=== PATIENT | female | born 1935 ===

== ENCOUNTER 2016-07-01 18:40 | Inpatient (IN) | payer MEDICARE ==
[~2016-07-01] VITALS: Ht 152.4 cm; Wt 67.2 kg
--- NOTE | 2016-07-01 19:00 | NUR ---
PATIENT IN BED, AWAKE. DENIES CURRENT NEEDS.
[2016-07-01] MEDS ORDERED: ELAVIL25 MG PO (20:13)
[2016-07-01] MEDS ORDERED: CYMBALTA60 MG PO (20:14)
[2016-07-01] MEDS ORDERED: LIPITOR20 MG PO (20:14)
[2016-07-01] MEDS ORDERED: CYCLOBENZAPRINE10 MG PO (20:14)
[2016-07-01] MEDS ORDERED: NEURONTIN 300300 MG PO (20:16)
[2016-07-01] MEDS ORDERED: METOPROLOL TART25 MG PO (20:19)
[2016-07-01] MEDS ORDERED: HYDROCODON-ACE1 EAC7 PO (20:19)
[2016-07-01] MEDS ORDERED: MECLIZINE HCL25 MG PO (20:20)
[2016-07-01] MEDS ORDERED: CATAPRES0.1 MG PO (20:21)
[2016-07-01] MEDS ORDERED: DIOVAN160 MG PO (20:22)
[2016-07-01] MEDS ORDERED: PHENERGAN25 M1 PO (20:22)
[2016-07-01 20:23] VITALS: BP 112/53; BMI 28.9
[2016-07-01 20:43] VITALS: BP 112/53
--- NOTE | 2016-07-01 21:25 | NUR ---
C/O PAIN LEVEL OF 6/10 IN LOW BACK, RIGHT ARM AND SHOULDER. GAVE PATIENT NORCO 5325 X1 TAB PO, WELL SCHEDULED HS MEDS. TOLD HER I WILL RETURN TO ASSESS HER AND RECORD HER HEALTH HISTORY.
--- NOTE | 2016-07-01 23:35 | NUR ---
ASSESSMENT AND HISTORY COMPLETE. ADMISSION DOCUMENTS INITIALED. PATIENT UNABLE TO SIGN FULL SIGNATURE DUE TO CVA EFFECTS TO HER RIGHT HAND. ASSISTED PATIENT UP TO BR TO URINATE. PATIENT ALSO HAD A SMALL FORMED BM WHILE ON COMMODE. THEN ASSISTED HER BACK TO BED. BED ALARM IS ARMED. DENIES FURTHER NEEDS.
--- NOTE | 2016-07-02 02:30 | NUR ---
RESTING IN BED ON LEFT SIDE, EYES CLOSED.
--- NOTE | 2016-07-02 04:45 | NUR ---
RESTING QUIETLY SINCE ASSIST UP TO BR AROUND 0300 HRS.
--- NOTE | 2016-07-02 05:50 | NUR ---
RESTING QUIETLY IN BED, EYES CLOSED.
[2016-07-02 07:30] VITALS: BP 150/56
--- NOTE | 2016-07-02 07:30 | NUR ---
UP IN BATHROOM.ASSISTED WITH MINIMAL HELP TO BED VIA WC.C/O LOW BACK AND SHOULDER PAIN,RATED PAIN AN 8.ASSESSMENT COMPLETED.WILL CONTINUE WITH PLAN OF CARE.
[2016-07-02 08:30] LABS: BASOPHILS 0.3 % (0-2); EOSINOPHILS 3.1 % (0-7); HEMATOCRIT 38.5 % (36.0-48.0); HEMOGLOBIN 12.9 g/dL (12-16); IMMATURE GRANULOCYTES 0.3 % (0-5); LYMPHOCYTES 16.3 % (15-50); MCH 28.4 pg (26.0-34.0); MCHC 33.5 g/dL (31.0-37.0); MCV 84.8 fL (80.0-100.0); MEAN PLATELET VOLUME 8.4 fL (7.4-10.4); MONOCYTES 6.7 % (2-11); NEUTROPHILS 73.3 % (40-80); PLATELET COUNT 217 10x3/uL (130-400); RBC 4.54 10x6/uL (4.00-5.40); RDW 13.4 % (11.5-14.5); WBC 6.5 10x3/uL (4.8-10.8)
[2016-07-02 08:42] LABS: ANION GAP 10.8 mmol/L (8-16); CALCIUM 9.6 mg/dL (8.5-10.1); CARBON DIOXIDE 31.4 mmol/L (21.0-32.0); CREATININE - SERUM 0.9 mg/dL (0.6-1.3); POTASSIUM - SERUM 4.2 mmol/L (3.5-5.1)
[2016-07-02 13:18] VITALS: Ht 152.4 cm; Wt 67.2 kg
--- NOTE | 2016-07-02 19:30 | NUR ---
IN BED, TALKING ON PHONE. NO COMPLAINTS AT THIS TIME.
[2016-07-02 21:00] VITALS: BP 142/83
--- NOTE | 2016-07-02 21:00 | NUR ---
ASSESSMENT AND HS MEDS COMPLETE. GAVE PATIENT NORCO X1 TAB PO FOR PAIN LEVEL OF 7/10 IN LOW BACK, RIGHT ARM AND LEG. DARK BRUISING TO RIGHT FOREARM VERY PLAIN TONIGHT FROM FALL AT HOME YESTERDAY 07/01 PRIOR TO ADMISSION TO REHAB. WAS ONLY SLIGHTLY DISCOLORED LAST NIGHT.
--- NOTE | 2016-07-02 21:50 | NUR ---
ASSISTED PATIENT UP TO BR TO URINATE, AND THEN BACK TO BED. NO COMPLAINTS AT THIS TIME.
--- NOTE | 2016-07-03 00:10 | NUR ---
IN BED, EYES CLOSED. RESTING ON LEFT SIDE.
--- NOTE | 2016-07-03 02:30 | NUR ---
RESTING IN BED, EYES CLOSED. NO APPARENT DISCOMFORT.
--- NOTE | 2016-07-03 04:30 | NUR ---
IN BED, EYES CLOSED RESPIRATIONS ARE QUIET AND UNLABORED.
--- NOTE | 2016-07-03 05:45 | NUR ---
IN BED, EYES CLOSED. RESTONG QUIETLY.
[2016-07-03 07:20] VITALS: BP 130/91
--- NOTE | 2016-07-03 19:10 | NUR ---
IN BED, AWAKE. LISTENING TO BOOK ON TAPE. DENIES NEEDS.
[2016-07-03 21:20] VITALS: BP 141/82
--- NOTE | 2016-07-03 22:25 | NUR ---
VS WERE TAKEN AT 2119 AND ASSESSMENT WAS INITIATED. ASSESSMENT NOW COMPLETE. GAVE PATIENT HS MEDS WELL NORCO 5/325 X1 TAB PO FOR PAIN LEVEL OF 7/10 IN LOW BACK. SAYS RIGHT ARM AND SHOULDER PAIN OF WHICH SHE HAS COMPLAINED THE PAST 2 NIGHTS IS MUCH IMPROVED.
--- NOTE | 2016-07-03 23:45 | NUR ---
RESTING IN BED ON LEFT SIDE. EYES CLOSED. NO APPARENT DISCOMFORT.
--- NOTE | 2016-07-04 02:10 | NUR ---
RESTING IN BED ON LEFT SIDE. APPEARS COMFORTABLE.
--- NOTE | 2016-07-04 03:15 | NUR ---
ASSISTED PATIENT UP TO COMMODE AND SUBSEQUENTLY BACK TO BED. ON RETURN FROM C/O PAIN LEVEL OF 6/10 IN LOW BACK. GAVE HER NORCO 5/325 X1 TAB PO.
--- NOTE | 2016-07-04 04:10 | NUR ---
RESTING QUIETLY, RESPIRATIONS UNLABORED.
--- NOTE | 2016-07-04 05:50 | NUR ---
IN BED, EYES CLOSED. NO EVIDENT DISTRESS.
--- NOTE | 2016-07-04 07:31 | NUR ---
RESTING QUIETLY IN BED CALL LIGHT IN REACH
--- NOTE | 2016-07-04 08:08 | NUR ---
MORNING MEDICATION GIVEN, PT TOLERATED WELL,PT STATES PAIN AT A 7 IN LOWER BACK, PAIN MEDICATION GIVEN, WILL CONTINUE TO MONITOR, CALL LIGHT WITHN REACH.
[2016-07-04 09:08] VITALS: BP 125/69
--- NOTE | 2016-07-04 10:16 | NUR ---
ASSISTED PT TO BATHROOM AND BACK TO BED VIA WHEELCHAIR, MINIMAL ASSISTANCE GIVEN, WILL CONTINUE TO MONITOR, CALL LIGHT WITHIN REACH.
--- NOTE | 2016-07-04 13:14 | NUR ---
PT RESTING QUIETLY, RESPIRATIONS EVEN, BED IN LOW POSITION, SIDE RAILS UP X'S 2, CALL LIGHT WITHIN REACH.
--- NOTE | 2016-07-04 15:26 | NUR ---
PT VISITING WITH FAMILY, PT STATES NO NEEDS AT THIS TIME, WILL CONTINUE TO MONITOR, CALL LIGHT WITHIN REACH.
--- NOTE | 2016-07-04 17:23 | NUR ---
PT SITTING ON BEDSIDE WATCHING TV, PT STATES NO NEW NEEDS AT THIS TIME, WILL CONTINUE TO MONITOR, CALL LIGHT WITHIN REACH.
--- NOTE | 2016-07-04 19:45 | NUR ---
ASSISTED PT TO BATHROOM, MIN ASSIST, PT IS ABLE TO PROPEL W/C FOR SHORT DISTANCE. PT C/O DIZZINESS AND PRN MEDICATION, MEDICATED PER ORDER.
[2016-07-04 20:08] VITALS: BP 123/65
--- NOTE | 2016-07-05 03:00 | NUR ---
PT RESTING QUIETLY, EYES CLOSED, NO S/S OF ACUTE DISTRESS.
--- NOTE | 2016-07-05 06:15 | NUR ---
PT REQUESTED PHENERGAN AT [address] WILL WORK AND SHE WON'T BE NAUSEAUS AT BREAKFAST, PT STATES SHE SLEPT WELL.
[2016-07-05 08:00] VITALS: BP 149/76
--- NOTE | 2016-07-05 08:00 | NUR ---
PATIENT ALERT/ORIENT X4. SITTING UP IN BED TO EAT BREAKFAST. CALL LIGHT WITHIN REACH. VOICES NO NEEDS AT THIS TIME
--- NOTE | 2016-07-05 10:00 | NUR ---
PATIENT IN REHAB ROOM WORKING WITH OCCUPATIONAL THERAPIST. STATES RELIEF FROM PRN PAIN MEDICATION
--- NOTE | 2016-07-05 10:58 | NUR ---
Nutrition Follow Up: Pt reported that her appetite is poor. She said that she is nauseated. Pt stated that she has trouble chewing due to loss of teeth. Pt requested a bland mechanical soft diet. She agreed to Ensure and Mighty Shakes. Pt is eating 33% meal avg on a regular diet. +BM 07/04/16. Wt stable. Labs reviewed. Meds noted. Pt continues with poor po intake. Will change diet to bland mech soft to aid in po intake. Will send Ensure and Mighty Shakes daily. Rec consider an appetite stimulant. RD will continue to monitor pt progress.
--- NOTE | 2016-07-05 14:04 | NUR ---
PATIENT IN REHAB ROOM. WORKING WITH PHYSICAL THERAPIST. DENIES ANY PAIN/DISC AT THIS TIME
--- NOTE | 2016-07-05 18:44 | NUR ---
RESTING QUIETLY IN BED CALL LIGHT IN REACH
--- NOTE | 2016-07-05 19:30 | NUR ---
PT RESTING SIDELYING, SMILES EASILY, CONVERSIVE. ALERT & ORIENTED.
[2016-07-05 21:39] VITALS: BP 132/75
--- NOTE | 2016-07-06 00:10 | NUR ---
ASSISTED WITH GETTING OUT OF BED, PT STATES HER HEADACHE IS FEELING BETTER. VOIDS PER TOILET.
--- NOTE | 2016-07-06 01:54 | NUR ---
PT TALENT ACQUISITION PROGRAM MANAGER LIGHT, PT UP TO BR VIA WC WITH ASSISTANCE, PT TO COMMODE, VOIDED BY SELF WITH NO DIFFICULTY, PT BACK TO BED, C/O LOW BACK PAIN, ADM NORCO PO PER MD ORDERS, SEE EMAR, PT DENIES FURTHER NEEDS
--- NOTE | 2016-07-06 02:30 | NUR ---
pt resting quietly on left side, pt has used call light for assistance as needed.
--- NOTE | 2016-07-06 02:30 | NUR ---
pt awake, states she needs assistance with repositioning left leg, pt is in dismay that it is only 2:30 in the morning.
--- NOTE | 2016-07-06 06:07 | NUR ---
pt requires max assist with bed mobility and encouragement for her to assist. pt frequently moans. left message for physician regarding pururitic rash on back
[2016-07-06 06:13] LABS: BASOPHILS 0.5 % (0-2); EOSINOPHILS 3.9 % (0-7); HEMATOCRIT 35.4 % (36.0-48.0); HEMOGLOBIN 11.7 g/dL (12-16); IMMATURE GRANULOCYTES 0.2 % (0-5); LYMPHOCYTES 21.3 % (15-50); MCH 28.2 pg (26.0-34.0); MCHC 33.1 g/dL (31.0-37.0); MCV 85.3 fL (80.0-100.0); MEAN PLATELET VOLUME 8.8 fL (7.4-10.4); MONOCYTES 8.1 % (2-11); PLATELET COUNT 223 10x3/uL (130-400); RBC 4.15 10x6/uL (4.00-5.40); RDW 13.4 % (11.5-14.5); WBC 6.2 10x3/uL (4.8-10.8)
--- NOTE | 2016-07-06 06:13 | NUR ---
pt states at home she at times takes two norco 5 for pain relief when it is severe, pt attributes increased pain to therapy and working different muscles. left note for Dr. Werner. pt conversive.
[2016-07-06 06:29] LABS: ANION GAP 10.6 mmol/L (8-16); CALCIUM 9.1 mg/dL (8.5-10.1); CARBON DIOXIDE 29.5 mmol/L (21.0-32.0); CREATININE - SERUM 0.9 mg/dL (0.6-1.3); POTASSIUM - SERUM 4.1 mmol/L (3.5-5.1)
--- NOTE | 2016-07-06 07:45 | NUR ---
IN BED EATING BREAKFAST.CL IN REACH.
--- NOTE | 2016-07-06 08:00 | NUR ---
PRN PHENAGREN GIVEN FOR NAUSEA.
[2016-07-06 08:10] VITALS: BP 126/75
--- NOTE | 2016-07-06 10:40 | NUR ---
PATIENT BACK IN ROOM AFTER PHYSICAL THERAPY. PRN PAIN MEDICATION GIVEN PER PATIENT REQUEST FOR LOWER BACK PAIN.
--- NOTE | 2016-07-06 13:14 | NUR ---
DR. Shalonda ALMENDAREZ INTO SEE PATIENT. [facility] NO NEW ORDERS RECEIVED.
--- NOTE | 2016-07-06 15:35 | NUR ---
PATIENT USING CALL LIGHT TO GO INTO BATHROOM. PATIENTIS A MOD TO MAX ASST OF ONE FROM BED INTO WHEELCHAIR. WHEELCHAIR PUSHED BY STAFF INTO BATHROOM. PATIENT ABLE TO GET SELF ON AND OFF TOILET BY SELF. ABLE TO DO OWN CHRIS CARE.
--- NOTE | 2016-07-06 16:44 | NUR ---
CARE TEAM MEETING: PATIENT PROGRESSING AND WILL BE RA AT NEXT MEETING. TENATIVE DISCHARGE DATE IS 07/14/16. WILL CONTINUE TO FOLLOW WITH PATIENT UNTIL DISCHARGED
--- NOTE | 2016-07-06 17:48 | NUR ---
PATIENT HAS GENERAL WEAKNESS FROM CVA. NO RIGHT OR LEFT DEFICIT NOTED.
[2016-07-06 19:07] VITALS: BP 123/70
--- NOTE | 2016-07-06 20:30 | NUR ---
PT STATES SHE HAS A HEADACHE, STATING SHE GETS THEM OCCASIONALLY AT HOME AND TAKES AN OTC MEDICATION FOR MIGRAINE RELIEF. PT STATES HER BACK IS HURTING. PRN PAIN MEDICATION ADMINISTERED. PT STATES THAT SHE CAN WALK, HOWEVER AT HOME SHE HAS BEEN ADVISED TO USE A W/C R/T HER HEART CONDITION. SHE STATES USING A W/C DECREASES HER RISK OF A FALL RELATED TO HER HEART CONDITION.
--- NOTE | 2016-07-07 03:47 | NUR ---
PT RESTING QUIETLY, NO S/S OF ACUTE DISTRESS.
--- NOTE | 2016-07-07 07:30 | NUR ---
PT RESTING IN BED WITH EYES OPEN. ALERT AND ORIENTED X 3. PT STATED SHE WOULD LIKE A PAIN PILL AND A PHENERGAN WITH HER MORNING MEDS TODAY. VOICES COMPLAINT OF A BACK PAIN LEVEL OF 5 AT THIS TIME. PT ASSISTED UP TO THE BATHROOM WITH SBA. WC PROPELLED BY NURSE. VOIDED WITHOUT DIFFICULTY. LARGE BM NOTED. SR'S ARE UP X 3 IN BED. CALL LIGHT AND BEDSIDE TABLE ARE WITHIN EASY REACH.
--- NOTE | 2016-07-07 09:35 | NUR ---
PT IS PARTICIPATING IN THERAPY AT THIS TIME.
[2016-07-07 11:30] VITALS: BP 141/85
--- NOTE | 2016-07-07 12:07 | RHP ---
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 HISTORY OF PRESENT ILLNESS: The patient is a 81-year-old female patient admitted from home with late effect CVA. She is a patient of [facility]. She reports that she fell at 4:00 a.m. the morning prior injuring her elbow and x-ray was done by [facility]. She reports that she fell a week ago and continued to have lumbar spine pain that radiated to her buttocks and perianal area. She denied loss of consciousness, but she does not know how she fell or ended up on her back. She has been having increasing pain. She also has dysuria with urgency and frequency the previous 3 days. She got a history of balance issues along with peripheral visual disturbances. She denies chills, fever or weight changes. She lives at home and has been moderate independent with mobility since 2 weeks prior to this. She has also been moderately independent with ADLs. She is currently moderate assist to max assist for her mobility and is unable to perform her ADLs secondary to increased pain. She plans to return home after acute inpatient rehab stay and hopefully get back to her prior level of functioning or better. COMORBIDITIES: Include dysuria, COPD, frequent falls, peripheral neuropathy, fatigue, dizziness, tremors, mild cognitive impairment. She had been having some heart flutters, insomnia, hypertension, hyperlipidemia, fibromyalgia, osteoarthritis, and blurred vision. PAST MEDICAL HISTORY: Significant for hypertension, hyperlipidemia, depression, anxiety, nausea. PAST SURGICAL HISTORY: Includes times 2, brain tumor removed, and appendectomy and gallbladder surgery. ALLERGIES: OXYCODONE. CURRENT MEDICATIONS: Include Diovan 160 mg daily, metoprolol 25 mg daily, Cymbalta 60 mg daily, Lipitor 20 mg daily, promethazine 25 mg q.6 hours p.r.n., meclizine 25 mg t.i.d. p.r.n., [place] 5/325 as needed for pain, Neurontin 300 mg t.i.d., Flexeril 10 mg t.i.d. p.r.n., Catapres 0.1 mg as needed for elevated systolic blood pressure, Elavil 25 mg at bedtime, and polyethylene glycol 17 grams in 8 ounces of water daily. HABITS: No alcohol or tobacco use. FAMILY HISTORY: Noncontributory. SOCIAL HISTORY: The patient hopes to return back home and get back to her prior level of functioning. HISTORY AND PHYSICAL [id number] JIM CABAN REVIEW OF SYSTEMS: GENERAL: Does complain of weakness. HEENT: Denies cold, cough, or congestion. CARDIOVASCULAR: Denies chest pain. LUNGS: Does not complain of any shortness of breath. PHYSICAL EXAMINATION: VITAL SIGNS: Stable, afebrile. GENERAL: Elderly female in no acute distress, alert upon exam. HEENT: Normocephalic, atraumatic. Mucosa moist. NECK: Supple. No lymphadenopathy. LUNGS: Clear at this time. HEART: Regular rate and rhythm. ABDOMEN: Benign. EXTREMITIES: No clubbing, cyanosis or edema. NEUROLOGIC: Seems intact. LABORATORY DATA: Her white count is 6.5, H&H of 12 and 38, and platelet count was noted to be 217. Her sodium is 141, potassium 4.2, BUN and creatinine of 10 and 0.9, and blood sugar is noted to be 123. ASSESSMENT: This is a 81-year-old female patient admitted to rehab with a working diagnosis of late effect cerebrovascular accident with a noted involvement of her right body. The patient has potential to make improvement. We instituted the following multidisciplinary therapies including to, but not limited to physical, occupational, respiratory, speech, nutritional services, prosthetics and orthotics. Given her complex condition and risk for more complications, rehabilitation services cannot be provided at a low level of care such as a custodial facility. PLAN: 1. Admit to [facility] rehab for intensive inpatient therapy to include the following disciplines: A. Physical therapy to improve gait, all transfer skills and bed mobility to a modified independent level. B. Occupational therapy to improve activities of daily living to a modified independent level. C. Case management to assist with discharge planning and placement options. D. Nutrition to assist with nutritional needs. E. Rehabilitation nursing to assist in monitoring the patient's underlying medical conditions and to assist with any type of bowel or bladder management. 2. The patient's current medications and medical care will be continued. 3. The patient will be placed on standard fall precautions. 4. The patient's estimated length of stay is approximately 7-10 days. 5. Discuss this patient during care team staff meeting this week. TRANSINT:[id number] Voice Confirmation ID: [id number] DOCUMENT ID: [id number] AMANDA notes whether there has been none or any medical/functional change since admission: - HISTORY AND PHYSICAL [id number] JIM CABAN attests patient continues to be appropriate for IRF: - BONINE ALMENDAREZ MD at 1207 CC: [id number] DICTATION DATE: 07/02/16 1404 PHYSICAL SCIENTIST: 07/03/16 0145 ADM IN [facility] [address] [place] [address]
--- NOTE | 2016-07-07 12:14 | NUR ---
PT RESTING IN HER ROOM AWAITING LUNCH. NO ACUTE DISTRESS NOTED.
--- NOTE | 2016-07-07 14:36 | NUR ---
PT IS IN THERAPY AT THIS TIME.
--- NOTE | 2016-07-07 17:31 | NUR ---
PT IS RESTING IN BED FEEDING SELF SUPPER. NO COMPLAINT VOICED.
--- NOTE | 2016-07-07 19:00 | NUR ---
PATIENT WAS GIVEN PAIN CONTROL BY ERIS KIRK. SEE EMAR.
[2016-07-07 20:10] VITALS: BP 128/68
--- NOTE | 2016-07-07 20:55 | NUR ---
ASSESSMENT AND HS MEDS COMPLETE. ASSISTED PATIENT UP TO BR, AND BACK TO BED.
--- NOTE | 2016-07-07 22:00 | NUR ---
WAS ASSISTED UP TO BR FOR 3RD TIME SINCE 1900, WHERE SHE URINATED AND HAD A SMALL VOLUME SOFT BM.
--- NOTE | 2016-07-08 00:05 | NUR ---
ASSISED PATIENT UP TO BR AND BACK TO BED. NOW C/O PAIN LEVEL OF 6/10 IN LOW BACK. GAVE HER NORCO 10 X1 TAB PO.
--- NOTE | 2016-07-08 02:00 | NUR ---
IN BED, EYES CLOSED. RESTING QUIETLY.
--- NOTE | 2016-07-08 04:00 | NUR ---
RESTING IN BED, EYES CLOSED. RESPIRATIONS UNLABORED.
--- NOTE | 2016-07-08 04:30 | NUR ---
ASSISTED PATIENT UP TO BR, ANB BACK TO BED. ON RETURN C/O PAIN LEVEL OF 8/10 IN LOW BACK. GAVE HER NORCO 10/325 X1 TAB PO.
--- NOTE | 2016-07-08 06:00 | NUR ---
RESTING IN BED, EYES CLOSED.
[2016-07-08 07:15] LABS: BASOPHILS 0.5 % (0-2); EOSINOPHILS 2.9 % (0-7); HEMATOCRIT 36.4 % (36.0-48.0); HEMOGLOBIN 11.9 g/dL (12-16); IMMATURE GRANULOCYTES 0.3 % (0-5); LYMPHOCYTES 21.1 % (15-50); MCH 28.1 pg (26.0-34.0); MCHC 32.7 g/dL (31.0-37.0); MCV 85.8 fL (80.0-100.0); MEAN PLATELET VOLUME 8.9 fL (7.4-10.4); MONOCYTES 8.9 % (2-11); NEUTROPHILS 66.3 % (40-80); PLATELET COUNT 223 10x3/uL (130-400); RBC 4.24 10x6/uL (4.00-5.40); RDW 13.4 % (11.5-14.5); WBC 5.9 10x3/uL (4.8-10.8)
[2016-07-08 07:22] LABS: ANION GAP 12.2 mmol/L (8-16); CALCIUM 9.1 mg/dL (8.5-10.1); CARBON DIOXIDE 29.9 mmol/L (21.0-32.0); CREATININE - SERUM 0.9 mg/dL (0.6-1.3); POTASSIUM - SERUM 4.1 mmol/L (3.5-5.1)
--- NOTE | 2016-07-08 07:39 | NUR ---
RESTING QUIETLY IN BED CALL LIGHT IN REACH
--- NOTE | 2016-07-08 10:00 | NUR ---
PT IS RESTING IN BED AFTER HAVING A SHOWER WITH CANAL STRUCTURE OPERATOR. AWAITING THERAPY TIME. NO DISTRESS NOTED.
[2016-07-08 11:15] VITALS: BP 127/79
--- NOTE | 2016-07-08 15:22 | NUR ---
RESTING IN BED WITH EYES CLOSED.
--- NOTE | 2016-07-08 17:45 | NUR ---
PT RESTING IN HER ROOM AWAITING SUPPER TO BE DELIVERED. NO NEEDS VOICED.
[2016-07-08 19:08] VITALS: BP 129/64
--- NOTE | 2016-07-08 19:40 | NUR ---
RESTING IN BED, EYES CLOSED.
--- NOTE | 2016-07-08 21:10 | NUR ---
ASSESSMENT AND HS MEDS COMPLETE. GAVE PATIENT NORCO 11/3251 X1 TAB PO FOR PAIN LEVEL OF 7/10 IN LOW BACK.
--- NOTE | 2016-07-08 22:05 | NUR ---
IN BED, AWAKE. DENIES NEEDS.
--- NOTE | 2016-07-09 | NUR ---
IN BED, EYES CLOSED. RESTING QUIETLY.
--- NOTE | 2016-07-09 01:50 | NUR ---
IN BED, EYES CLOSED. WAS ASSISTED UP TO BR AND BACK TO BED @ 0125. ON RETURN TO BED, C/O LOW BACK PAIN OF 7/10 AND WAS GIVEN NORCO 5/325 X1 TAB PO.
--- NOTE | 2016-07-09 04:45 | NUR ---
ASSISTED PATIENT UP TO KELLY TO URINATE, AND THEN TO BRIGIDO WITH ASSISTANCE INTO SCRUBS. RETURNED HER TO BED. DENIES FURTHER NEEDS.
--- NOTE | 2016-07-09 07:25 | NUR ---
PT IS RESTING IN BED WITH EYES OPEN. ALERT AND ORIENTED X 3. VOICED COMPLAINT OF BACK PAIN LEVEL OF 4. REQUESTED A PAIN PILL WITH HER MORNING MEDICATIONS. NO OTHER NEEDS VOICED. SR'S ARE UP X 2 IN BED. CALL LIGHT AND BEDSIDE TABLE ARE WITHIN EASY REACH. BED ALARM IS ON.
[2016-07-09 07:41] VITALS: BP 121/75
--- NOTE | 2016-07-09 09:41 | NUR ---
PT IS PARTICIPATING IN THERAPY AT THIS TIME.
--- NOTE | 2016-07-09 11:36 | NUR ---
PT IS RESTING IN BED WITH EYES OPEN. NO NEEDS VOICED.
--- NOTE | 2016-07-09 14:16 | NUR ---
PT RESTING IN BED WITH EYES OPEN. VOICED COMPLAINT OF NAUSEA. NO EMESIS NOTED. PT MEDICATED PER HER REQUEST. 2 VISITORS AT BEDSIDE.
--- NOTE | 2016-07-09 16:30 | NUR ---
PT ASSISTED TO THE BATHROOM WITH SBA. VOIDED WITHOUT DIFFICULTY. NO DISTRESS NOTED.
--- NOTE | 2016-07-09 18:27 | NUR ---
RESTING QUIETLY IN BED CALL LIGHT IN REACH
[2016-07-09 19:00] VITALS: BP 130/64
--- NOTE | 2016-07-09 19:00 | NUR ---
IN BED, AWAKE. DENIES NEEDS.
--- NOTE | 2016-07-09 19:50 | NUR ---
ASSISTED PATIENT UP TO BR TO URINATE AND CHANGE INTO SCRUBS FOR THE NIGHT.
--- NOTE | 2016-07-09 22:00 | NUR ---
ASSESSMENT AND HS MEDS COMPLETE. GAVE PATIENT NORCO X1 TAB PO FOR HYDE LEVEL OF 6/10 IN LOW BACK. DENIES FURTHER NEEDS.
--- NOTE | 2016-07-09 23:30 | NUR ---
SET OFF BED ALARM. FOUND PATIENT OOB ATTEMPTING TO RETURN TO BED FROM ROOMMATE'S BEDSIDE. PATIENT EXPLAINS THAT SHE WAS DREAMING ABOUT HER MOTHER AND THOUGHT HER ROOMMATE WAS HER MOTHER UNTIL SHE REALIZED HER ERROR. ASSISTED PATIENT UP TO BR TO TOILET. WILL CALL WHEN FINISHED.
--- NOTE | 2016-07-10 02:00 | NUR ---
RESTING IN BED, EYES CLOSED. LYING ON LEFT SIDE.
--- NOTE | 2016-07-10 04:40 | NUR ---
RESTING IN BED ON LEFT SIDE. RESPIRING QUIETLY.
--- NOTE | 2016-07-10 06:00 | NUR ---
IN BED, AWAKE. JUST RETURNED FROM BR WITH ASSIST.
[2016-07-10 08:00] VITALS: BP 133/68
--- NOTE | 2016-07-10 08:29 | NUR ---
SITTING UP EATING BREAKFAST DENIES NEEDS CALL LIGHT IN REACH
--- NOTE | 2016-07-10 09:52 | NUR ---
PT RESTING IN BED WITH EYES OPEN. ASSISTED UP TO THE BATHROOM WITH SBA. VOIDED WITHOUT DIFFICULTY. ASSISTED INTO THE SHOWER. PT SHOWERED INDEPENDENTLY. MOD ASSIST GIVEN TO DRY OFF AND DRESS AFTERWARDS. BED LINENS CHANGED. PT DRESSED IN HER OWN DRESS FOR THE DAY.
--- NOTE | 2016-07-10 12:33 | NUR ---
PT RESTING IN BED FEEDING SELF LUNCH. NO DISTRESS NOTED.
--- NOTE | 2016-07-10 15:00 | NUR ---
PT IS RESTING IN BED WITH EYES OPEN. NO NEEDS VOICED. ASSISTED TO BATHROOM PRN.
--- NOTE | 2016-07-10 17:26 | NUR ---
PT IS FEEDING SELF SUPPER IN HER ROOM. NO NEEDS VOICED.
--- NOTE | 2016-07-10 20:03 | NUR ---
PT LYING IN BED WATCHING TV, PT DENIES NEEDS AT THIS TIME.
[2016-07-11 01:44] VITALS: BP 170/83
[2016-07-11 02:26] VITALS: BP 170/83
--- NOTE | 2016-07-11 04:25 | NUR ---
PT AWAKE, RESPIRATIONS REGULAR, DENIED ANY NEEDS.
--- NOTE | 2016-07-11 06:38 | NUR ---
PT RESTING, EYES CLOSED, RESPIRATIONS REGULAR AND UNLABORED. NO S/S OF ACUTE DISTRESS.
--- NOTE | 2016-07-11 08:00 | NUR ---
PT RESTING IN BED WITH EYES OPEN CALL LIGHT IN REACH WILL MONITER
--- NOTE | 2016-07-11 08:14 | NUR ---
SITTING UP EATING BREAKFAST DENIES NEEDS CALL LIGHT IN REACH
[2016-07-11 12:18] VITALS: BP 149/42
--- NOTE | 2016-07-11 16:28 | NUR ---
PT RESTING IN BED WITH EYES OPEN CALL LIGHT IN REACH NO PROBLEMS WILL MONITER
[2016-07-11 18:59] VITALS: BP 120/72
--- NOTE | 2016-07-11 19:20 | NUR ---
ASSISTED PT TO BATHROOM, SBA PER W/C. PT NEEDS REMINDERS TO LOCK WHEELS. PT CONVERSIVE, DENIES ANY OTHER NEEDS.
--- NOTE | 2016-07-12 03:58 | NUR ---
PT HAS BEEN RESTING WITH EYES CLOSED, NO S/S OF ACUTE DISTRESS.
[2016-07-12 05:39] LABS: BASOPHILS 0.3 % (0-2); EOSINOPHILS 3.2 % (0-7); HEMATOCRIT 38.3 % (36.0-48.0); HEMOGLOBIN 12.7 g/dL (12-16); IMMATURE GRANULOCYTES 0.4 % (0-5); LYMPHOCYTES 18.3 % (15-50); MCH 28.3 pg (26.0-34.0); MCHC 33.2 g/dL (31.0-37.0); MCV 85.5 fL (80.0-100.0); MONOCYTES 6.8 % (2-11); PLATELET COUNT 242 10x3/uL (130-400); RBC 4.48 10x6/uL (4.00-5.40); RDW 13.3 % (11.5-14.5); WBC 6.9 10x3/uL (4.8-10.8)
[2016-07-12 05:49] LABS: ANION GAP 9.7 mmol/L (8-16); CALCIUM 9.4 mg/dL (8.5-10.1); CARBON DIOXIDE 31.7 mmol/L (21.0-32.0); POTASSIUM - SERUM 4.4 mmol/L (3.5-5.1)
--- NOTE | 2016-07-12 08:17 | NUR ---
PT RESTING IN BED WITH EYES OPEN CALL LIGHT IN REACH WILL MONITER
[2016-07-12 10:31] VITALS: BP 150/84
--- NOTE | 2016-07-12 15:06 | NUR ---
PT RESTING IN BED WITH EYES OPEN CALL [facility]5T IN REACH WILL MONITER
--- NOTE | 2016-07-12 15:07 | NUR ---
NUTRITION MONITORING & EVAL CHART REVIEWED. [facility] SOFT BLAND DIET. 25 TO 50 % INTAKE RECENT MEALS. 100% INTAKE ENSURE AT LUNCH TODAY. RD FOLLOWING
--- NOTE | 2016-07-12 18:15 | NUR ---
DENIES NEEDS,CL IN REACH.
--- NOTE | 2016-07-12 18:55 | NUR ---
IN BED, AWAKE. DENIES NEEDS.
--- NOTE | 2016-07-12 20:05 | NUR ---
ASSESSMENT AND HS MEDS COMPLETE. REVIEWED TRANSFER AND MOBILITY SAFETY WITH PATIENT SHE IS DISCHARGING TOMORROW. REMINDED THAT THERAPY HAS RECOMMENDED THAT SHE USE W/C MOBILITY DUE TO MULTIPLE FALLS WHILE USING R/W AT HOME, SHE SHOULD STICK TO THAT PLAN. REFERRED HER TO MORTGAGE LOAN COMPUTATION CLERK AND O/T FOR RECOMMENDATIONS FOR A CARRYING DEVICE FOR MEALS WHILE IN W/C AND TO SEE IF W[employer]E ELIMINATION CAN PLACE HER MEAL TRAYS IN THE HOME VS JUST DELIVERING TO THE DOOR.
[2016-07-12 20:09] VITALS: BP 115/49
--- NOTE | 2016-07-12 22:20 | NUR ---
ASSISTED PATIENT UP TO BR, AND THEN BACK TO BED. REQUESTED FLEXERIL, BUT I REMINDED HER SHE HAD IT AROUND 1700 HRS AND WOULD NEED TO WAIT UNTIL AT LEAST MIDNIGHT BEFORE NEXT DOSE COULD BE GIVEN ON CURRENT ORDER (TID PRN).
--- NOTE | 2016-07-13 00:15 | NUR ---
RESTING IN BED ON LEFT SIDE. NO DISTRESS NOTED.
--- NOTE | 2016-07-13 02:20 | NUR ---
RESTING QUIETLY ON LEFT SIDE AFTER ASSIST UP TO COMMODE AND BACK TO BED @ 0150.
--- NOTE | 2016-07-13 04:20 | NUR ---
RESTING IN BED ON RIGHT SIDE. RESPIRING QUIETLY.
--- NOTE | 2016-07-13 06:10 | NUR ---
GAVE PATIENT NORCO X1 TAB PO FOR PAIN LEVEL OF 7/10 IN LOW BACK. PATIENT IS NOW DRESSED IN HER OWN HOUSE DRESS FOR DISCHARGE LATER TODAY. IS CONCERNED THAT YET SHE IS UNABLE TO FIND A FAMILY MEMBER TO PICK HER UP AND RETURN HER HOME. ENCOURAGE HER TO KEEP CALLING, AND WILL PASS THIS INFO ON TO [employer] SPREADER OPERATOR/OCCUPATIONAL HEALTH NURSE MANAGER TO ASSIST HER.
--- NOTE | 2016-07-13 07:59 | NUR ---
SITTING ON SIDE OF BED EATING BREAKFAST.CL IN REACH.
[2016-07-13 09:24] VITALS: BP 144/77
--- NOTE | 2016-07-13 09:43 | NUR ---
PT IS PARTICIPATING IN THERAPY AT THIS TIME.
--- NOTE | 2016-07-13 10:54 | NUR ---
DC INSTRUCTIONS GIVEN TO PATIENT WITH VERBAL UNDERSTANDING GIVEN TO ALL. PT DENIES NEEDING ANY MEDICATIONS CALLED IN TO PHARMACY.
--- NOTE | 2016-07-13 12:00 | NUR ---
PT IS RESTING IN BED AWAITING HER RIDE HOME. NO COMPLAINT VOICED.
--- NOTE | 2016-07-13 12:57 | NUR ---
PT DEPARTED UNIT VIA WC PROPELLED BY STAFF TO AL HOME. ALL BELONINGS SENT WITH PT. PT DEPARTED GROUNDS VIA POV DRIVEN BY A FRIEND FROM [facility].
--- NOTE | 2016-07-13 15:50 | NUR ---
PATIENT DISCHARGING HOME TODAY. [facility] AT HOME WILL RESUME CARE AND [facility] CALLS WILL CONTINUE WITH HOME CARE. PATIENT HAS WALKER AND WHEELCHAIR AT HOME, NO NEW DME NEEDED AT THIS TIME. DR. LEZAMA 07/20/16 @ 2:15. PATIENT CHOICE FORMS FOR HOME HEALTH AND [facility] FORMS SIGNED, EXPLAINED AND FILED IN CHART. ORDERS HAVE BEEN FAXED WITH CONFORMATION RECIEVED
== END 2016-07-13 12:58 | disposition home health service (06) | DRG 66 ==
LOC: D.REHAB 18:40
PROVIDERS: ADMIT Emergency Medicine
DX: I63.9 Cerebral infarction, unspecified (principal); R30.0 Dysuria; J44.9 Chronic obstructive pulmonary disease, unspecified; G62.9 Polyneuropathy, unspecified; R53.83 Other fatigue; R42 Dizziness and giddiness; G31.84 Mild cognitive impairment of uncertain or unknown etiology; I10 Essential (primary) hypertension; E78.5 Hyperlipidemia, unspecified; M19.90 Unspecified osteoarthritis, unspecified site; H53.8 Other visual disturbances; M79.7 Fibromyalgia

== ENCOUNTER → 2017-03-07 13:26 | Outpatient (CLI) | payer MEDICARE ==
[2016-07-02 13:18] VITALS: BMI 28.9
[~2017-03-07 13:26] MED LIST: CATAPRES0.1 MG PO; CYCLOBENZAPRINE10 MG PO; CYMBALTA60 MG PO; DIOVAN160 MG PO; ELAVIL25 MG PO; HYDROCODON-ACE1 EAC7 PO; LIPITOR20 MG PO; MECLIZINE HCL25 MG PO; METOPROLOL TART25 MG PO; NEURONTIN 300300 MG PO; PHENERGAN25 M1 PO
[2017-03-07 14:22] LABS: APPEARANCE CLEAR (CLEAR); BILIRUBIN NEGATIVE (NEGATIVE); COLOR YELLOW (YELLOW); GLUCOSE NEGATIVE (NEGATIVE); KETONE NEGATIVE (NEGATIVE); NITRITE NEGATIVE (NEGATIVE); PROTEIN NEGATIVE (NEGATIVE); UROBILINOGEN NORMAL (NORMAL)
[2017-03-07 14:24] LABS: BACTERIA FEW /hpf (NONE SEEN); EPITHELIAL CELLS 0-5 /hpf (0-5); RED CELLS - URINE RARE /hpf (0-5); WHITE CELLS - URINE 0-5 /hpf (0-5)
== END | disposition home or self-care (01) ==
LOC: D.LABREF 13:26
PROVIDERS: Family Medicine
DX: N39.0 Urinary tract infection, site not specified (principal)

== ENCOUNTER 2018-05-02 14:20 | Inpatient (IN) | payer MEDICARE ==
[~2018-05-02] VITALS: Ht 152.4 cm; Wt 63.5 kg
[2018-05-02 14:30] VITALS: BP 138/83
[2018-05-02] MEDS ORDERED: BUSPAR5 MG PO (14:32)
[2018-05-02] MEDS ORDERED: BACLOFEN10 MG PO (14:32)
[2018-05-02] MEDS ORDERED: CYMBALTA60 MG PO (14:33)
[2018-05-02] MEDS ORDERED: NEURONTIN 300300 MG PO (14:33)
[2018-05-02] MEDS ORDERED: CYCLOBENZAPRINE10 MG PO (14:33)
[2018-05-02] MEDS ORDERED: HYDROCODON-ACET15 ML PO (14:34)
[2018-05-02] MEDS ORDERED: CLARITIN 10 MG10 MG PO (14:35)
[2018-05-02] MEDS ORDERED: DIOVAN160 MG PO (14:35)
[2018-05-02 15:44] VITALS: BP 147/78
--- NOTE | 2018-05-02 15:44 | NUR ---
PT STABLE, CALL LIGHT WITHIN REACH, DENIES NEEDS, WILL CONTINUE TO MONITOR.
[2018-05-02 16:17] LABS: BASOPHILS 0.3 % (0-2); EOSINOPHILS 1.5 % (0-7); HEMATOCRIT 38.2 % (36.0-48.0); HEMOGLOBIN 13.3 g/dL (12-16); IMMATURE GRANULOCYTES 0.3 % (0-5); LYMPHOCYTES 14.6 % (15-50); MCH 28.5 pg (26.0-34.0); MCHC 34.8 g/dL (31.0-37.0); MEAN PLATELET VOLUME 8.8 fL (7.4-10.4); MONOCYTES 7.5 % (2-11); NEUTROPHILS 75.8 % (40-80); PLATELET COUNT 223 10x3/uL (130-400); RBC 4.66 10x6/uL (4.00-5.40); RDW 13.3 % (11.5-14.5); WBC 6.7 10x3/uL (4.8-10.8)
--- NOTE | 2018-05-02 16:21 | NUR ---
PT GONE TO CT AT THIS TIME.
[2018-05-02 16:30] VITALS: BP 145/75
[2018-05-02 16:39] LABS: ALBUMIN 3.7 g/dL (3.4-5.0); ANION GAP 11.6 mmol/L (8-16); BILIRUBIN - TOTAL 0.43 mg/dL (0.2-1.3); CALCIUM 9.1 mg/dL (8.5-10.1); CARBON DIOXIDE 29.3 mmol/L (21.0-32.0); CREATININE - SERUM 0.8 mg/dL (0.6-1.3); POTASSIUM - SERUM 3.9 mmol/L (3.5-5.1)
[2018-05-02 16:48] LABS: THYROID STIMULATING HORMONE 1.53 uIU/mL (0.36-3.74)
[2018-05-02 17:30] VITALS: BP 150/96
--- NOTE | 2018-05-02 17:43 | NUR ---
PT REPORT CALLED TO NURSE CHI. PT ADMITED TO ROOM 1213. PT STABLE AT THIS TIME.
[2018-05-02 18:23] VITALS: BP 144/83; BMI 27.3
--- NOTE | 2018-05-02 19:45 | NUR ---
PT SITTING UP IN BED, NO SIGNS OF DISTRESS. ALERT AND ORIENTED. DENIES PAIN OR NEEDS. UP W/ ASSIST BATHROOM. GENERALIZED WEAKNESS, MORE SO ON THE RIGHT. EYE PATCH OVER RIGHT EYE. IV LEFT HAND SL, FLUSHES EASILY. LUC ON. SRX2, BED LOWEST POSITION, CL IN REACH. WILL CONT TO MONITOR
[2018-05-02 20:00] VITALS: BP 134/81
--- NOTE | 2018-05-02 22:30 | NUR ---
PT HAD EPISODE LASTING APPROXIMATELY 5 MINUTES OF SHAKING UNCONTROLLABLY W/ GENERALIZED PAIN AND SPECIFICALLY PAIN TO UPPER BACK. VSS AT THIS TIME. PT UNABLE TO SPEAK FIRST FEW MINUTES OF EPISODE. STATES AFTERWARD THAT THE SHAKING HAS NOT HAPPENED BEFORE. ALERT AND ORIENTED X4. CALLED [employer] SOFTWARE SALES, ORDERS TO CONSULT CARDIOLOGY, D-DIMER, CHEST XRAY, CTA PE PROTOCOL, CARDIAC ENZYMES AND EKG Q6 X3 ORDER SET. UNABLE TO GET 20G IV STARTED ON PT FOR CT, MATHEMATICS TEACHER CALLED AND ATTEMPTED. CALLED [facility] W/ RESULTS OF ENZYMES, EKG, AND CHEST XRAY AND INFORMED OF NOT BEING ABLE TO GET 20G IV SITED. ORDERS TO CANCEL CT AND ORDER VQ SCAN. PT WENT TO VQ SCAN BY WHEELCHAIR. TOLERATED WELL. BACK TO ROOM W/O DISTRESS. LUC ON. CL IN REACH, WILL CONT TO MONITOR
[2018-05-02 23:41] LABS: CREATINE KINASE 150 UL (21-215)
[2018-05-02 23:42] LABS: TROPONIN-I < 0.017 ng/mL (0.000-0.060)
[2018-05-03] VITALS: BP 150/71
[2018-05-03 04:00] VITALS: BP 144/77
[2018-05-03 06:08] LABS: CKMB 3.9 U/L (0.0-3.6); CREATINE KINASE 183 UL (21-215)
[2018-05-03 06:10] LABS: TROPONIN-I < 0.017 ng/mL (0.000-0.060)
[2018-05-03 07:50] VITALS: BP 144/72
--- NOTE | 2018-05-03 11:23 | MORECARE ---
CASE MANAGEMENT DISCHARGE SUMMARY PATIENT: JIM CABAN UNIT: [id number] ADM DATE: 05/02/18 AGE: 83 : 37 SEX: F ROOM/BED: D.1213 AUTHOR: EMMANUELLE GALICIA PHYSICIAN: REFERRING PHYSICIAN: BRITTANY MUNOZ MD DATE OF SERVICE: 05/03/18 Discharge Plan Patient Name: JIM CABAN Facility: [facility]:[place] : 1935 Planned Disposition: Anticipated Discharge Date: Discharge Date: Expected LOS: Initial Reviewer: [email or web address] Initial Review Date: 05/03/2018 Generated: 05/03/18 12:23 pm Comments DCP- Discharge Planning Updated by [email or web address]: Carolahamilton Bansal on 05/03/18 10:[address] Patient Name: JIM CABAN Admission Status: ER Accout number: [id number] Admission Date: 05-02-2018 : 1935 Admission Diagnosis: Attending: BRITTANY MUNOZ Current LOS: 1 Anticipated DC Date: Planned Disposition: Primary Insurance: MEDICARE A & B Discharge Planning Comments: CM MET WITH PATIENT ABOUT DC PLANNING/NEEDS. STATES SHE IS CURRENT WITH [facility], HOUSE CALLS, AND RECIEVES MEALS ON WHEELS. PATIENT STATES PLANS TO DC TO HOME AND RESUME SERVICES UNLESS THE DOCTOR THINKS SHE NEEDS REHAB. CM TO FOLLOW AND ASSIST NEEDED WITH DC PLANNING/NEEDS. Nursing Home Physician: Carola Bansal DCPIA - Discharge Planning Initial Assessment Updated by [email or web address]: Carola Bansal on 05/03/18 11:16 am * Is the patient Alert and Oriented? Yes * PCP TEJA * Pharmacy [facility] * Preadmission Environment Home Alone * ADLs Independent * Equipment Walker Wheelchair * Community resources currently utilized Home Health * Please name any agencies selected above. [facility] * Has this patient been hospitalized within the prior 30 days at any hospital? No Patient Name: JIM CABAN Page [id number] at 1123 All edits/amendments must be made on the electronic document DICTATION DATE: 05/03/18 1123 CATALYST OPERATOR: ZAINAB 05/03/18 1123 RPT#: [id number] DC DATE: STATUS: ADM IN [facility] [address] [place] [address] END OF REPORT
[2018-05-03 12:19] LABS: CKMB 4.6 U/L (0.0-3.6); CREATINE KINASE 219 UL (21-215)
[2018-05-03 12:21] LABS: TROPONIN-I < 0.017 ng/mL (0.000-0.060)
[2018-05-03 12:49] VITALS: BP 143/71
[2018-05-03 15:12] VITALS: Ht 152.4 cm; Wt 63.5 kg
--- NOTE | 2018-05-03 16:03 | NUR ---
THIS NURSE AGREES WITH THE CHARTING/ASSESSMENT OF THE [facility]
--- NOTE | 2018-05-03 19:30 | NUR ---
THE PATIENT WAS LYING IN BED WHEN STAFF ENTERED HER ROOM. BED IS IN THE LO WPOSITION WITH SIDERAILS X2 AND CALL LIGHT WITHIN REACH. THE PATIENT WAS EDUCATED ON THE USE OF A CALL LIGHT AND DEMONSTRATED UNDERSTANDING VIA TEACHABCK METHOD. THE PATIENT APPEARS COMFORTABLE WITH NO QUESTIONS OR COCNERNS AT THIS TIME.
[2018-05-04 00:17] VITALS: BP 131/75
--- NOTE | 2018-05-04 03:15 | NUR ---
PATIENT UP TO USE THE RESTROOM. NO COMPLAINTS OR CONCERNS AT THIS TIME.
[2018-05-04 05:30] VITALS: BP 121/67
--- NOTE | 2018-05-04 07:55 | NUR ---
PT SITTING UP IN BED EATING BREAKFAST. WASH RAG GIVEN. VITALS STABLE. A/O. UP WITH STAND BY ASSIST. L WRIST IV SL. RM AIR. NORMAL SINUS ON TELE. DENIES PAIN AT THIS TIME. NO FURTHER COMPLAINTS. BED LOWERED AND LOCKED. CL IN REACH. WILL CPOC.
[2018-05-04 08:10] VITALS: BP 145/88
[2018-05-04 09:09] LABS: BASOPHILS 0.3 % (0-2); EOSINOPHILS 3.5 % (0-7); HEMOGLOBIN 13.4 g/dL (12-16); IMMATURE GRANULOCYTES 0.3 % (0-5); LYMPHOCYTES 16.2 % (15-50); MCH 28.8 pg (26.0-34.0); MCHC 34.4 g/dL (31.0-37.0); MCV 83.7 fL (80.0-100.0); MEAN PLATELET VOLUME 9.5 fL (7.4-10.4); MONOCYTES 5.9 % (2-11); NEUTROPHILS 73.8 % (40-80); PLATELET COUNT 228 10x3/uL (130-400); RBC 4.66 10x6/uL (4.00-5.40); RDW 13.3 % (11.5-14.5); WBC 5.9 10x3/uL (4.8-10.8)
[2018-05-04 09:10] LABS: ANION GAP 17.5 mmol/L (8-16); CALCIUM 8.7 mg/dL (8.5-10.1)
[2018-05-04 09:11] LABS: CARBON DIOXIDE 19.5 mmol/L (21.0-32.0)
[2018-05-04] MEDS ORDERED: ASPIRIN EC81 M1 PO (12:01)
[2018-05-04] MEDS ORDERED: PLAVIX75 MG PO (12:01)
[2018-05-04 12:05] VITALS: BP 134/70
--- NOTE | 2018-05-04 12:40 | MORECARE ---
CASE MANAGEMENT DISCHARGE SUMMARY PATIENT: JIM CABAN UNIT: [id number] ADM DATE: 05/03/18 AGE: 83 : 37 SEX: F ROOM/BED: D.1213 AUTHOR: EMMANUELLE GALICIA PHYSICIAN: REFERRING PHYSICIAN: BRITTANY MUNOZ MD DATE OF SERVICE: 05/04/18 Discharge Plan Patient Name: JIM CABAN Facility: [facility]:[place] : 1935 Planned Disposition: Home Hlth Svc w Plan Readm Anticipated Discharge Date: 05/04/18 Discharge Date: Expected LOS: 1 Initial Reviewer: [email or web address] Initial Review Date: 05/03/2018 Generated: 05/04/18 1:40 pm Comments DCP- Discharge Planning Updated by [email or web address]: Carola Bansal on 05/04/18 11:[address] Patient Name: JIM CABAN Encounter No: [id number] : 1935 Primary Insurance: MEDICARE A & B Anticipated DC Date: 05-04-2018 Planned Disposition: Home Hlth Svc w Plan Readm External Planned Provider: : DCP follow-up note: Patient in agreement with discharge plan. No changes to plan. [facility] will resume care when patient dc'd to home. CM will fax dc instructions to [facility]. Case management will follow and assist as needed. Carola Bansal DCP- Discharge Planning Updated by [email or web address]: Carola Bansal on 05/03/18 10:[address] Patient Name: JIM CABAN Admission Status: ER Accout number: [id number] Admission Date: 05-02-2018 : 1935 Admission Diagnosis: Attending: BRITTANY MUNOZ Current LOS: 1 Anticipated DC Date: Planned Disposition: Primary Insurance: MEDICARE A & B Discharge Planning Comments: CM MET WITH PATIENT ABOUT DC PLANNING/NEEDS. STATES SHE IS CURRENT WITH [facility], HOUSE CALLS, AND RECIEVES MEALS ON WHEELS. PATIENT STATES PLANS TO DC TO HOME AND RESUME SERVICES UNLESS THE DOCTOR THINKS SHE NEEDS REHAB. CM TO FOLLOW AND ASSIST NEEDED WITH DC PLANNING/NEEDS. Bicycle I Assembler: Carola Bansal DCPIA - Discharge Planning Initial Assessment Updated by [id number]: Carola Bansal on 05/03/18 11:16 am * Is the patient Alert and Oriented? Yes * PCP TEJA * Pharmacy [facility] * Preadmission Environment Home Alone * ADLs Independent * Equipment Walker Wheelchair * Community resources currently utilized Home Health * Please name any agencies selected above. [facility] * Has this patient been hospitalized within the prior 30 days at any hospital? No Last DP export: 05/03/18 10:23 a Patient Name: JIM CABAN Page [phone] at 1240 All edits/amendments must be made on the electronic document DICTATION DATE: 05/04/18 1239 HOMEBIRTH MIDWIFE: ZAINAB 05/04/18 1239 RPT#: [id number] DC DATE: STATUS: ADM IN [facility] [address] [place] [address] END OF REPORT
--- NOTE | 2018-05-04 15:07 | NUR ---
DC GIVEN TO PT. PT STATES SHE WILL HAVE TO GET AHOLD OF HER SON IN [place] BUT HER PHONE IS . NO PHONE NUMBER LOCATED ON CHART FOR PT SON. FRANKY BINDER STRIPPER MACHINE SAID SHE WOULD LOOK INTO IT.
--- NOTE | 2018-05-04 15:15 | MORECARE ---
CASE MANAGEMENT DISCHARGE SUMMARY PATIENT: JIM CABAN UNIT: [id number] ADM DATE: 05/03/18 AGE: 83 : 37 SEX: F ROOM/BED: D.1213 AUTHOR: EMMANUELLE GALICIA PHYSICIAN: REFERRING PHYSICIAN: BRITTANY MUNOZ MD DATE OF SERVICE: 05/04/18 Discharge Plan Patient Name: JIM CABAN Facility: [facility]:[place] : 1935 Planned Disposition: Home Hlth Svc w Plan Readm Anticipated Discharge Date: 05/04/18 Discharge Date: Expected LOS: 1 Initial Reviewer: [email or web address] Initial Review Date: 05/03/2018 Generated: 05/04/18 4:15 pm Comments DCP- Discharge Planning Updated by [email or web address]: Carola Bansal on 05/04/18 11:[address] Patient Name: JIM CABAN Encounter No: [id number] : 1935 Primary Insurance: MEDICARE A & B Anticipated DC Date: 05-04-2018 Planned Disposition: Home Hlth Svc w Plan Readm External Planned Provider: : DCP follow-up note: Patient in agreement with discharge plan. No changes to plan. [facility] will resume care when patient dc'd to home. CM will fax dc instructions to [facility]. Case management will follow and assist as needed. Carola Bansal DCP- Discharge Planning Updated by [email or web address]: Carola Bansal on 05/03/18 10:[address] Patient Name: JIM CABAN Admission Status: ER Accout number: [id number] Admission Date: 05-02-2018 : 1935 Admission Diagnosis: Attending: BRITTANY MUNOZ Current LOS: 1 Anticipated DC Date: Planned Disposition: Primary Insurance: MEDICARE A & B Discharge Planning Comments: CM MET WITH PATIENT ABOUT DC PLANNING/NEEDS. STATES SHE IS CURRENT WITH [facility], HOUSE CALLS, AND RECIEVES MEALS ON WHEELS. PATIENT STATES PLANS TO DC TO HOME AND RESUME SERVICES UNLESS THE DOCTOR THINKS SHE NEEDS REHAB. CM TO FOLLOW AND ASSIST NEEDED WITH DC PLANNING/NEEDS. Health Club Attendant: Carola Bansal DCPIA - Discharge Planning Initial Assessment Updated by [email or web address]: Carola Bansal on 05/03/18 11:16 am * Is the patient Alert and Oriented? Yes * PCP TEJA * Pharmacy [facility] * Preadmission Environment Home Alone * ADLs Independent * Equipment Walker Wheelchair * Community resources currently utilized Home Health * Please name any agencies selected above. [facility] * Has this patient been hospitalized within the prior 30 days at any hospital? No External Providers [facility] Next Contact Date: Service Request Date: Service Type: Resolution: Reviewer: Comments: Last DP export: 05/04/18 11:40 a Patient Name: JIM CABAN Page [phone] at 1515 All edits/amendments must be made on the electronic document DICTATION DATE: 05/04/181514 ART COORDINATOR: ZAINAB 05/04/181514 RPT#: [id number] DC DATE: STATUS: ADM IN [facility] [address] [place] [address] END OF REPORT
--- NOTE | 2018-05-04 15:27 | MORECARE ---
CASE MANAGEMENT DISCHARGE SUMMARY PATIENT: JIM CABAN UNIT: [id number] ADM DATE: 05/03/18 AGE: 83 : 37 SEX: F ROOM/BED: D.1213 AUTHOR: EMMANUELLE GALICIA PHYSICIAN: REFERRING PHYSICIAN: BRITTANY MUNOZ MD DATE OF SERVICE: 05/04/18 Discharge Plan Patient Name: JIM CABAN Facility: [facility]:[place] : 1935 Planned Disposition: Home Hlth Svc w Plan Readm Anticipated Discharge Date: 05/04/18 Discharge Date: Expected LOS: 1 Initial Reviewer: [email or web address] Initial Review Date: 05/03/2018 Generated: 05/04/18 4:26 pm Comments DCP- Discharge Planning Updated by [email or web address]: Carola Bansal on 05/04/18 2:[address] Patient Name: JIM CABAN Encounter No: [id number] : 1935 Primary Insurance: MEDICARE A & B Anticipated DC Date: 05-04-2018 Planned Disposition: Home Hlth Svc w Plan Readm External Planned Provider: : DCP follow-up note: Patient in agreement with discharge plan. No changes to plan. [facility] will resume care when patient dc'd to home. CM will fax dc instructions to [facility]. Case management will follow and assist as needed. Carola Bansal Appended by Carola Bansal on 05/04/2018 15:20 CDT: SPOKE WITH PATIENT'S SON PAO AT [phone] AND HE IS CALLING ASHLEY TO CARGOMAN HIS MOM. CM TO FOLLOW AND ASSIST. DCP- Discharge Planning Updated by [email or web address]: Carola Bansal on 05/03/18 10:[address] Patient Name: JIM CABAN Admission Status: ER Accout number: [id number] Admission Date: 05-02-2018 : 1935 Admission Diagnosis: Attending: BRITTANY MUNOZ Current LOS: 1 Anticipated DC Date: Planned Disposition: Primary Insurance: MEDICARE A & B Discharge Planning Comments: CM MET WITH PATIENT ABOUT DC PLANNING/NEEDS. STATES SHE IS CURRENT WITH [facility], HOUSE CALLS, AND RECIEVES MEALS ON WHEELS. PATIENT STATES PLANS TO DC TO HOME AND RESUME SERVICES UNLESS THE DOCTOR THINKS SHE NEEDS REHAB. CM TO FOLLOW AND ASSIST NEEDED WITH DC PLANNING/NEEDS. Soubrette: Carola Bansal DCPIA - Discharge Planning Initial Assessment Updated by [email or web address]: Carola Bansal on 05/03/18 11:16 am * Is the patient Alert and Oriented? Yes * PCP TEJA * Pharmacy [facility] * Preadmission Environment Home Alone * ADLs Independent * Equipment Walker Wheelchair * Community resources currently utilized Home Health * Please name any agencies selected above. [facility] * Has this patient been hospitalized within the prior 30 days at any hospital? No Last DP export: 05/04/18 2:15 p Patient Name: JIM CABAN Page 25865 at 1527 All edits/amendments must be made on the electronic document DICTATION DATE: 05/04/181525 NOVELTY DIPPER: ZAINAB 05/04/18 1526 RPT#: [id number] DC DATE: STATUS: ADM IN [facility] [address] [place] [address] END OF REPORT
--- NOTE | 2018-05-04 16:22 | NUR ---
PT DC HOME VIA PERSONAL CAR WITH SON
--- NOTE | 2018-05-04 17:10 | MORECARE ---
CASE MANAGEMENT DISCHARGE SUMMARY PATIENT: JIM CABAN UNIT: [id number] ADM DATE: 05/03/18 AGE: 83 : 37 SEX: F ROOM/BED: D.1213 AUTHOR: EMMANUELLE GALICIA PHYSICIAN: REFERRING PHYSICIAN: BRITTANY MUNOZ MD DATE OF SERVICE: 05/04/18 Discharge Plan Patient Name: JIM CABAN Facility: [facility]:[place] : 1935 Planned Disposition: Home Hlth Svc w Plan Readm Anticipated Discharge Date: 05/04/18 Discharge Date: 05/04/2018 Expected LOS: 1 Initial Reviewer: [email or web address] Initial Review Date: 05/03/2018 Generated: 05/04/18 6:10 pm Comments DCP- Discharge Planning Updated by [email or web address]: Carola Bansal on 05/04/18 2:[address] Patient Name: JIM CABAN Encounter No: [id number] : 1935 Primary Insurance: MEDICARE A & B Anticipated DC Date: 05-04-2018 Planned Disposition: Home Hlth Svc w Plan Readm External Planned Provider: : DCP follow-up note: Patient in agreement with discharge plan. No changes to plan. [facility] will resume care when patient dc'd to home. CM will fax dc instructions to [facility]. Case management will follow and assist as needed. Carola Bansal Appended by Carola Bansal on 05/04/2018 15:20 CDT: SPOKE WITH PATIENT'S SON PAO AT [phone] AND HE IS CALLING ASHLEY TO TRAFFIC OPERATIONS ENGINEER HIS MOM. CM TO FOLLOW AND ASSIST. DCP- Discharge Planning Updated by [email or web address]: Carola Bansal on 05/03/18 10:[address] Patient Name: JIM CABAN Admission Status: ER Accout number: [id number] Admission Date: 05-02-2018 : 1935 Admission Diagnosis: Attending: BRITTANY MUNOZ Current LOS: 1 Anticipated DC Date: Planned Disposition: Primary Insurance: MEDICARE A & B Discharge Planning Comments: CM MET WITH PATIENT ABOUT DC PLANNING/NEEDS. STATES SHE IS CURRENT WITH [facility], HOUSE CALLS, AND RECIEVES MEALS ON WHEELS. PATIENT STATES PLANS TO DC TO HOME AND RESUME SERVICES UNLESS THE DOCTOR THINKS SHE NEEDS REHAB. CM TO FOLLOW AND ASSIST NEEDED WITH DC PLANNING/NEEDS. Internist: Carola Bansal DCPIA - Discharge Planning Initial Assessment Updated by [email or web address]: Carola Bansal on 05/03/18 11:16 am * Is the patient Alert and Oriented? Yes * PCP TEJA * Pharmacy [facility] * Preadmission Environment Home Alone * ADLs Independent * Equipment Walker Wheelchair * Community resources currently utilized Home Health * Please name any agencies selected above. [facility] * Has this patient been hospitalized within the prior 30 days at any hospital? No Last DP export: 05/04/18 2:26 p Patient Name: JIM CABAN Page 57703 at 1710 All edits/amendments must be made on the electronic document DICTATION DATE: 05/04/181709 BARIATRIC PHYSICIAN: ZAINAB 05/04/181709 RPT#: [id number] DC DATE:05/04/18 STATUS: DIS IN [facility] [address] [place] [address] END OF REPORT
--- NOTE | 2018-05-06 10:39 | EC ---
PATIENT:JIM CABAN DATE OF SERVICE: 05/03/18 SEX: F MEDICAL RECORD: [id number] DATE OF : [birth year] LOCATION:D.M3 D.121 AGE OF PATIENT: 83 ADMISSION DATE: 05/03/18 REFERRING PHYSICIAN: INTERPRETING PHYSICIAN: RAYMOND TEJADA MD ECHOCARDIOGRAM REPORT ECHO CHARGES 4 ECHO COMPLETE Date: 05/03/18 CLINICAL DIAGNOSIS: HTN ECHOCARDIOGRAPHIC MEASUREMENTS (adult normal given) AC root (d.<3.7cm) 2.8 cm LV Septum d (<1.2 cm> 1.3 cm Valve Excursion 1.5 cm LV Septum (systole) 1.6 cm Left Atria (s.<4.0cm> 2.9 cm LVPW d(<1.2cm) 1.3 cm RV (d.<2.3cm) 1.9 cm LVPW (sytole) 1.8 cm LV diastole(<5.6CM) 4.5 cm MV E-F(>70mm/sec) cm LV systole 2.5 cm LVOT Diameter 1.6 cm MV exc.(>10mm) cm Est.ejection fraction (50-75%) % DOPPLER: LVIT cm/sec A 132 cm/sec E 930 cm/sec LA cm/sec RVSP 28.0 mmHg LVOT 135 cm/sec AOP1/2T m/s Asc. Ao 167 cm/sec RVOT 87.0 cm/sec RA cm/sec PA 92.0 cm/sec AV Gradient Peak 11.2 mmHg AV Mean 4.9 mmHg AV Area 1.6 cm MV Gradient Peak 8.9 mmHg MV Mean 2.8 mmHg MV Area cm COMMENTS: Flame Planer: Kya HENRIQUEZOE Shellfish Shucker: 3 Dr. Soares TAPE# PACS Pericardial Effusion N DATE OF SERVICE: 05/03/2018 Adequate 2-D, color-flow and spectral Doppler, and M-mode. Mild LVH. LV internal dimensions are normal. Wall motion is normal. EF is greater than or equal to 55%. Aortic valve is tricuspid. No evidence of stenosis by Doppler interrogation. Left atrium is normal at 2.9 cm. Mitral valve shows no prolapse. Trace MR. Right-sided chambers are grossly normal. Trace TR. ECHOCARDIOGRAM REPORT [id number] JIM CABAN TRANSINT:[id number] Voice Confirmation ID: [id number] DOCUMENT ID: [id number] RAYMOND TEJADA MD at 1039 CC: [id number] DICTATION DATE: 05/03/18 1509 BIOINFORMATICS ANALYST: 05/03/18 194 DIS IN 05/04/18 [place] [id number] [place] [id number]
== END 2018-05-04 16:22 | disposition home health service (06) | DRG 69 ==
LOC: D.ER 14:20 → D.M3 17:53 → OBSVTIME 17:53 → D.M3 17:53
PROVIDERS: Emergency Medicine; ADMIT Emergency Medicine; ATTEND Emergency Medicine
DX: G45.9 Transient cerebral ischemic attack, unspecified (principal); I69.951 Hemiplegia and hemiparesis following unspecified cerebrovascular disease affecting right dominant side; R47.01 Aphasia; R55 Syncope and collapse; I10 Essential (primary) hypertension; E78.5 Hyperlipidemia, unspecified; R40.2144 Coma scale, eyes open, spontaneous, 24 hours or more after hospital admission; R40.2354 Coma scale, best motor response, localizes pain, 24 hours or more after hospital admission; R40.2254 Coma scale, best verbal response, oriented, 24 hours or more after hospital admission

== ENCOUNTER → 2019-01-24 13:12 | Outpatient (CLI) | payer MEDICARE ==
[2018-05-03 15:12] VITALS: BMI 27.3
[~2019-01-24 13:12] MED LIST changes: +ASPIRIN EC81 M1 PO; +BACLOFEN10 MG PO; +BUSPAR5 MG PO; +CLARITIN 10 MG10 MG PO; +HYDROCODON-ACET15 ML PO; +PLAVIX75 MG PO
== END | disposition home or self-care (01) ==
LOC: D.CT 13:12
PROVIDERS: ATTEND Family Medicine
DX: I65.29 Occlusion and stenosis of unspecified carotid artery (principal)